=== PATIENT | female | born 1940 | race American Indian/Alaskan Native ===

== ENCOUNTER 2016-09-12 17:11 | Emergency (ER) | payer MEDICARE ==
--- NOTE | 2016-09-12 19:39 | Emergency Department Report ---
ED Female HPI - General Chief complaint: Urogenital-Female Stated complaint: BLOOD IN URINE CATHETER BAY Time Seen by Provider: 09/12/16 18:54 Source: patient, EMS Mode of arrival: Stretcher Limitations: Physical Limitation, Other - History of Present Illness Initial comments: 76 yo female with PMHX of end-stage renal disease, Alzheimer, diabetes, lupus has presented to the ED with blood in her chronic indwelling Hinds catheter. Onset of symptoms started this a.m. Patient was recently seen by her urologist on 09/11/2016 for similar complaints (several days prior she had blood in her hinds) when she did FU with urology her urine had cleared. She was started on macrobid and a FU appt was scheduled. Today when her hematuria started again. Pt has no other complaints. Patient denies colon fevers/chills, chest pain, abdominal pain. - Related Data Home Medications Medication Instructions Recorded Confirmed Last Taken Atorvastatin (Nf) [Lipitor (Nf)] 20 mg PO DAILY 02/28/14 04/05/14 04/05/14 Cholecalciferol (Vitamin D3) 50,000 unit PO QWEEK 02/28/14 04/05/14 04/05/14 [Vitamin D3] Donepezil [Aricept] 10 mg PO QDAY 02/28/14 04/05/14 04/05/14 Escitalopram Oxalate [Lexapro] 20 mg PO DAILY 02/28/14 04/05/14 04/05/14 Hydroxychloroquine [Plaquenil] 200 mg PO BID 02/28/14 04/05/14 04/05/14 ISOSORBIDE MONOnitrate [Imdur ER] 30 mg PO DAILY 02/28/14 04/05/14 04/05/14 Insulin Aspart [NovoLOG 100 3 units SQ TID 02/28/14 04/05/14 04/05/14 UNITS/ML VIAL] Memantine (Nf) [Namenda (Nf)] 10 mg PO BID 02/28/14 04/05/14 04/05/14 Omeprazole [PriLOSEC] 40 mg PO DAILY 02/28/14 04/05/14 04/05/14 Torsemide [Demadex] 20 mg PO BID 02/28/14 04/05/14 04/05/14 Previous Rx's Medication Instructions Recorded Last Taken Type Carvedilol [Coreg] 12.5 mg PO BID #60 tablet 03/16/14 04/05/14 Rx amLODIPine [Norvasc] 5 mg PO QDAY #30 tablet 03/16/14 04/05/14 Rx Promethazine [Phenergan TAB] 25 mg PO Q6H PRN #30 tablet 03/21/14 04/05/14 Rx Ciprofloxacin HCl [Ciprofloxacin 500 mg PO Q12HR #20 tab 09/12/16 Unknown Rx TAB] Allergies Allergy/AdvReac Type Severity Reaction Status Date / Time No Known Allergies Allergy Verified 09/12/16 21:34 ED Review of Systems ROS: Stated complaint: BLOOD IN URINE CATHETER BAY Other details as noted in HPI Constitutional: denies: chills, fever Eyes: denies: eye pain, eye discharge, vision change ENT: denies: ear pain, throat pain Respiratory: denies: cough, shortness of breath, wheezing Cardiovascular: denies: chest pain, palpitations Endocrine: no symptoms reported Gastrointestinal: denies: abdominal pain, nausea, diarrhea Genitourinary: hematuria. denies: urgency, dysuria, discharge Musculoskeletal: denies: back pain, joint swelling, arthralgia Skin: denies: rash, lesions Neurological: denies: headache, weakness, paresthesias Psychiatric: denies: anxiety, depression Hematological/Lymphatic: denies: easy bleeding, easy bruising ED Past Medical Hx - Past Medical History Hx Hypertension: Yes Hx Diabetes: Yes Hx GERD: Yes Hx Renal Disease: Yes Hx Psychiatric Treatment: (depression) Hx COPD: Yes Hx Dementia: Yes Hx HIV: No Additional medical history: alzheimers, lupus, enlarged heart, gout, osteopenia , osteoarthritis, - Surgical History Hx Open Heart Surgery: Yes Hx Cholecystectomy: Yes (1995) Additional Surgical History: back and knee 1995, neck 1969, bilateral cataract 2003 - Social History Smoking Status: Never Smoker - Medications Home Medications: Home Medications Medication Instructions Recorded Confirmed Last Taken Type Atorvastatin (Nf) [Lipitor (Nf)] 20 mg PO DAILY 02/28/14 04/05/14 04/05/14 History Cholecalciferol (Vitamin D3) 50,000 unit PO QWEEK 02/28/14 04/05/14 04/05/14 History [Vitamin D3] Donepezil [Aricept] 10 mg PO QDAY 01/07/0804/05/14 04/05/14 History Escitalopram Oxalate [Lexapro] 20 mg PO DAILY 02/28/14 04/05/14 04/05/14 History Hydroxychloroquine [Plaquenil] 200 mg PO BID 02/28/14 04/05/14 04/05/14 History ISOSORBIDE MONOnitrate [Imdur ER] 30 mg PO DAILY 02/28/14 04/05/14 04/05/14 History Insulin Aspart [NovoLOG 100 3 units SQ TID 02/28/14 04/05/14 04/05/14 History UNITS/ML VIAL] Memantine (Nf) [Namenda (Nf)] 10 mg PO BID 02/28/14 04/05/14 04/05/14 History Omeprazole [PriLOSEC] 40 mg PO DAILY 02/28/14 04/05/14 04/05/14 History Torsemide [Demadex] 20 mg PO BID 02/28/14 04/05/14 04/05/14 History Carvedilol [Coreg] 12.5 mg PO BID #60 tablet 03/16/14 04/05/14 04/05/14 Rx amLODIPine [Norvasc] 5 mg PO QDAY #30 tablet 03/16/14 04/05/14 04/05/14 Rx Promethazine [Phenergan TAB] 25 mg PO Q6H PRN #30 tablet 03/21/14 04/05/1404/05 Rx Ciprofloxacin HCl [Ciprofloxacin 500 mg PO Q12HR #20 tab 09/12/16 Unknown Rx TAB] ED Physical Exam - General Limitations: Physical Limitation, Other General appearance: alert, in no apparent distress - Head Head exam: Present: atraumatic, normocephalic - Eye Eye exam: Present: normal appearance - ENT ENT exam: Present: mucous membranes moist - Neck Neck exam: Present: normal inspection - Respiratory Respiratory exam: Present: normal lung sounds bilaterally. Absent: respiratory distress - Cardiovascular Cardiovascular Exam: Present: regular rate, normal rhythm. Absent: systolic murmur, diastolic murmur, rubs, gallop - GI/Abdominal GI/Abdominal exam: Present: soft, normal bowel sounds - External exam: Present: other (pt has indwelling hinds catheter with bright red blood in tubing and hematuria apprecaited in hinds bag) - Extremities Exam Extremities exam: Present: normal inspection - Back Exam Back exam: Present: normal inspection - Neurological Exam Neurological exam: Present: alert, oriented X3 - Psychiatric Psychiatric exam: Present: normal affect, normal mood - Skin Skin exam: Present: warm, dry, intact, normal color. Absent: rash ED Course Vital Signs 09/12/16 09/12/16 09/12/16 18:06 21:27 23:01 Temperature 98.2 F Pulse Rate 121 H 57 L 80 Respiratory 20 16 18 Rate Blood Pressure 126/60 Blood Pressure 133/74 145/87 [Left] O2 Sat by Pulse 99 97 99 Oximetry - Reevaluation(s) Reevaluation #1: 09/12/16 22:41 Patient's daughter states that she is aware that the patient's platelets are low she's having outpatient follow-up for further workup. She also had platelet transfusion outside hospital several weeks prior. Patient has been given a copy of her lab work and CAT scan CP follow-up. 09/12/16 23:49 ED Medical Decision Making - Lab Data Result diagrams: 09/12/16 19:54 09/12/16 19:54 - EKG Data -: EKG Interpreted by Me EKG shows normal: sinus rhythm (89), axis (negative ), intervals (QT 433) Rate: normal - EKG Data When compared to previous EKG there are: no significant change - Radiology Data Radiology results: report reviewed, image reviewed Impression: Numerous bilateral renal cysts that aren't completely characterized without intravenous contrast. Recommend evaluation ultrasound on routine basis. There are numerous right intrarenal calcifications most likely vascular possibly with diffuse small kidney stones. 2 possible fecal impaction 3 diverticulosis without evidence of acute diverticulitis 4. sclerosis of the lower lumbar spine degenerative disc disease advanced at L4 through 5. Extensive arthrosclerotic disease. Dr Edwin HOWELL - Medical Decision Making 76 yo female presenting to ED with hematuria likely secondary to mild thrombocytopenia and acute cystitsis. Pt symptoms have resolved, after nurse irrigation of 1 L normal saline, urine is now clear. Patient's daughter has been given copy of lab work as well as CT scan for primary care follow-up. I have discussed this patient and patient's that likely the symptoms are due to cystitis however differentials including kidney stone and urologic malignancy still exists therefore she must have PCP follow-up. Both agreed to outpatient workup and plan. They verbalize understanding of return precautions. - Differential Diagnosis renal colic, renal CA, bladder CA Critical Care Time: No Critical care attestation.: If time is entered above; I have spent that time in minutes in the direct care of this critically ill patient, excluding procedure time. ED Disposition Clinical Impression: Hematuria, Acute cystitis, Acute cystitis with hematuria, Thrombocytopenia Disposition: TO HOME OR SELFCARE Is pt being admited?: No Does the pt Need Aspirin: No Condition: Stable Instructions: Urinary Tract Infection in Women (ED) Prescriptions: Ciprofloxacin HCl [Ciprofloxacin TAB] 500 mg PO Q12HR #20 tab Referrals: PRIMARY CARE, [Primary Care Provider] - 3-5 Days MARA DEL CASTILLO MD [Staff Physician] - 3-5 Days OTF PIMENTEL MD [Staff Physician] - 2-3 Days
[2016-09-12 20:22] LABS: INR 1.11 (0.87-1.13)
[2016-09-12 20:23] LABS: Partial Thromboplastin Time 28.7 Sec. (24.2-36.6)
[2016-09-12 20:29] LABS: White Blood Count 9.2 K/mm3 (4.5-11.0)
[2016-09-12 20:30] LABS: Hematocrit 42.5 % (30.3-42.9); Hemoglobin 13.3 gm/dl (10.1-14.3); Mean Corpuscular HGB Conc 31 % (30-34); Mean Corpuscular Hemoglobin 24 pg (28-32); Mean Corpuscular Volume 78 fl (79-97); Red Blood Count 5.45 M/mm3 (3.65-5.03); Red Cell Distribution Width 24.1 % (13.2-15.2)
[2016-09-12 20:32] LABS: Basophils % (Auto) 0.5 % (0.0-1.8); Eosinophils % (Auto) 0.4 % (0.0-4.3)
[2016-09-12 20:37] LABS: BUN/Creatinine Ratio 22.81; Calcium 9.2 mg/dL (8.4-10.2); Chloride 95.7 mmol/L (98-107); Potassium 4.9 mmol/L (3.6-5.0)
--- NOTE | 2016-09-12 21:39 | Cat Scan Report ---
FINAL REPORT EXAM: CT ABDOMEN PELVIS WO CON HISTORY: HEMATURIA TECHNIQUE: Helical CT scan through the abdomen and pelvis without contrast. Images are reconstructed in the sagittal and coronal planes. PRIORS: None. FINDINGS: Solid organ and bowel evaluation is limited without intravenous contrast. Bowel evaluation is limited without oral contrast. The lung bases are clear. The liver, pancreas, spleen and adrenal glands appear normal. There are surgical clips in the gallbladder fossa. There are numerous right renal cysts, incompletely characterized without intravenous contrast. The largest is in the upper pole measuring 4.1 cm. There are numerous right intrarenal calcifications most likely vascular with possibly a few kidney stone. On the left there are also multiple cysts to lesser extent than on the right. These are also incompletely characterized without intravenous contrast. The largest is in the upper pole measuring 1.4 cm. There are vascular calcifications without evidence of urolithiasis on the left. There is no hydronephrosis or ureterolithiasis. There are multiple calcifications in the uterus consistent with uterine fibroids. The ovaries are small and appear grossly normal. There is a Fong catheter in the bladder. The stomach appears grossly within normal limits. There are no abnormally dilated loops of bowel or acute inflammatory changes. There is a large amount of stool in the rectum. The appendix is not discretely visualized but there are no inflammatory changes in the right lower quadrant around the area of the cecum. There is colonic diverticulosis without evidence of acute diverticulitis. There is extensive atherosclerotic calcification of the abdominal aorta and iliac and femoral arteries without aneurysm. The bones are diffusely demineralized. There is rotatory scoliosis of the lower lumbar spine. There is advanced degenerative disc disease of the lumbar spine, most pronounced at L4-5 where there is endplate sclerosis and irregularity and prominent osteophyte formation. IMPRESSION: 1. Numerous bilateral renal cysts that are incompletely characterized without intravenous contrast. Recommend evaluation with ultrasound on a routine basis. There are numerous right intrarenal calcifications most likely mostly vascular possibly with a few small kidney stones. 2. Possible fecal impaction 3. Diverticulosis without evidence of acute diverticulitis 4. Extensive atherosclerotic disease 5. 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
[2016-09-12 21:51] LABS: Platelet Count 71 K/mm3 (140-440)
[2016-09-12] MEDS ORDERED: NACL 0.9% IR ONE (22:02)
[2016-09-12 22:10] LABS: Bacteria,Urine 4+ /HPF (Negative); Bilirubin,Urine NEG (Negative); Blood,Urine MOD (Negative); Ketones,Urine NEG (Negative); Leukocyte Esterase,Urine MOD (Negative); Nitrite,Urine NEG (Negative); Urobilinogen,Urine < 2.0 mg/dL (<2.0)
[2016-09-12 22:26] LABS: RBC,Urine > 182.0 /HPF (0.0-6.0); WBC,Urine > 182.0 /HPF (0.0-6.0)
[2016-09-12] MEDS ORDERED: LEVAQUIN PO ONE (22:33)
[2016-09-12 22:45] LABS: Basophils % (Manual) 0 % (0.0-1.8); Blastocytes % (Manual) 0 %; Eosinophils % (Manual) 0 % (0.0-4.3)
[2016-09-12 22:46] LABS: Anisocytosis 1+; Large Platelets 1+
[2016-09-12 22:47] LABS: Diff Status Complete; Elliptocytes 1+
[2016-09-12 23:02] VITALS: BP 145/87
[2016-09-12] MEDS ORDERED: MORPHINE IM ONE (23:02)
== END 2016-09-13 00:18 | disposition home or self-care (01) ==
LOC: ED 17:11
DX: N30.01 Acute cystitis with hematuria (principal); D69.6 Thrombocytopenia, unspecified; K21.9 Gastro-esophageal reflux disease without esophagitis; F32.9 Major depressive disorder, single episode, unspecified; J44.9 Chronic obstructive pulmonary disease, unspecified; G30.9 Alzheimer's disease, unspecified; F02.80 Dementia in other diseases classified elsewhere, unspecified severity, without behavioral disturbance, psychotic disturbance, mood disturbance, and anxiety; M19.90 Unspecified osteoarthritis, unspecified site; E11.22 Type 2 diabetes mellitus with diabetic chronic kidney disease; I12.0 Hypertensive chronic kidney disease with stage 5 chronic kidney disease or end stage renal disease; N18.6 End stage renal disease; M10.9 Gout, unspecified
CPT/HCPCS: 36415; 74176; 80048; 81001; 85007; 85025; 85610; 85730; 87086; 93005; 93010; 96372; 99284; J2270